=== PATIENT | female | born 1995 | race African-American/Black ===

== ENCOUNTER 2020-04-18 21:03 | Emergency (ER) | payer OTHER ==
[~2020-04-18] VITALS: Ht 182.9 cm; Wt 77.1 kg
[2020-04-18 21:41] LABS: PLATELET COUNT 278 K/uL (152-353)
[2020-04-18 23:20] VITALS: BP 123/70; TEMP 97.9
== END 2020-04-18 23:20 | disposition home or self-care (01) ==
LOC: ED 21:03
PROVIDERS: Hospitalist
DX: J06.9 Acute upper respiratory infection, unspecified (principal); U07.1 COVID-19
CPT/HCPCS: 80053; 81000; 81025; 85027; 87502; 87635; 87651; 99283; U0002